=== PATIENT | male | born 1960 | race African-American/Black ===

== ENCOUNTER 2018-01-15 09:17 | Day surgery (SDC) | payer MEDICARE, OTHER, MEDICAID ==
[2018-01-15] MEDS ORDERED: PROPOFOL 20 ML (10:30)
[2018-01-15] MEDS ORDERED: LIDOCAINE 2% (SDV) 5 ML INJ (10:30)
== END 2018-01-15 12:05 | disposition home or self-care (01) ==
LOC: GIL 09:17
DX: Z12.11 Encounter for screening for malignant neoplasm of colon (principal); K64.8 Other hemorrhoids; G80.9 Cerebral palsy, unspecified
CPT/HCPCS: G0121

== ENCOUNTER 2018-02-26 11:51 | Emergency (ER) | payer MEDICARE, OTHER ==
[2018-02-26] MEDS: FLUORESCEIN STRIP LEFT EYE (13:40)
== END 2018-02-26 13:41 | disposition home or self-care (01) ==
LOC: FTE 11:51
DX: S01.112A Laceration without foreign body of left eyelid and periocular area, initial encounter (principal); I10 Essential (primary) hypertension; W22.8XXA Striking against or struck by other objects, initial encounter; Y92.9 Unspecified place or not applicable
CPT/HCPCS: 99282

== ENCOUNTER 2018-03-03 09:51 | Emergency (ER) | payer MEDICARE, OTHER | END 2018-03-03 11:17 | disposition home or self-care (01) | LOC: FTE 09:51 | DX: S05.92XA Unspecified injury of left eye and orbit, initial encounter (principal); I10 Essential (primary) hypertension; W20.8XXA Other cause of strike by thrown, projected or falling object, initial encounter; Y92.9 Unspecified place or not applicable | CPT/HCPCS: 99283 ==

== ENCOUNTER 2018-08-29 09:47 | Emergency (ER) | payer MEDICARE, OTHER ==
[2018-08-29 11:06] LABS: ADD MAN DIFF? NO
[2018-08-29] MEDS: ASPIRIN 325 MG TAB PO (11:08)
[2018-08-29 11:10] LABS: BASOPHILS % 0.2 % (0.0-2.0); EOSINOPHILS % 0.3 % (0.0-7.0); HEMATOCRIT 34.9 % (42.0-52.0); HEMOGLOBIN 11.3 g/dl (14.0-18.0); LYMPHOCYTES # 1.3 10^3/ul (0.8-2.9); LYMPHOCYTES % 11.1 % (15.0-51.0); MEAN CORPUSCULAR HEMOGLOBIN 29.4 pg (29.0-33.0); MEAN CORPUSCULAR HGB CONC 32.4 g/dl (32.0-37.0); MEAN CORPUSCULAR VOLUME 90.6 fl (82.0-101.0); MEAN PLATELET VOLUME 9.3 fl (7.4-10.4); MONOCYTE # 1.2 10^3/ul (0.3-0.9); NEUTROPHIL # 9.3 10^3/ul (1.6-7.5); PLATELET COUNT 283 10^3/UL (140-415); RED BLOOD COUNT 3.85 10^6/ul (4.70-6.10)
[2018-08-29 11:30] LABS: ALANINE AMINOTRANSFERASE 32 IU/L (13-69); ALBUMIN 3.7 g/dl (3.3-4.9); ALKALINE PHOSPHATASE 85 IU/L (42-121); ANION GAP 6 (5-13); ASPARTATE AMINO TRANSFERASE 25 IU/L (15-46); BILIRUBIN,INDIRECT 0.5 mg/dl (0-1.1); BILIRUBIN,TOTAL 0.5 mg/dl (0.2-1.3); BLOOD UREA NITROGEN 20 mg/dl (7-20); CARBON DIOXIDE 31 mmol/L (21-31); CHLORIDE 101 mmol/L (97-110); CREATINE KINASE 145 IU/L (23-200); CREATININE 0.92 mg/dl (0.61-1.24); Estimated GFR > 60 mL/min (>60); GLUCOSE 104 mg/dl (70-220); LIPASE 54 U/L (23-300); POTASSIUM 3.8 mmol/L (3.5-5.1); SODIUM 138 mmol/L (135-144); TOTAL PROTEIN 7.4 g/dl (6.1-8.1)
[2018-08-29 11:37] LABS: INR 1.07; PARTIAL THROMBOPLASTIN TIME 31.5 Sec (23.0-35.0); PT RATIO 1.1
[2018-08-29] MEDS: ALBUTEROL 0.083% (NEB) 2.5 MG/3 ML AMP NEB (11:39)
[2018-08-29] MEDS: IPRATROPIUM (NEB) 0.5 MG/2.5 ML AMP NEB (11:39)
[2018-08-29 11:40] LABS: CK INDEX 0.7
[2018-08-29 11:42] LABS: B-TYPE NATRIURETIC PEPTIDE 58 PG/ML (0-125); TROPONIN-I < 0.012 ng/ml (0.000-0.120)
[2018-08-29 11:45] LABS: CK-MB 0.98 ng/ml (0.0-2.4)
[2018-08-29] MEDS: CEFTRIAXONE 1 GM/50 ML (PMX) 50 ML IVPB (11:48)
[2018-08-29] MEDS: AZITHROMYCIN 500MG/NS (PMX) 250 ML IV (12:41)
== END 2018-08-29 14:08 | disposition home or self-care (01) ==
LOC: E/R 09:47
DX: J18.1 Lobar pneumonia, unspecified organism (principal); I10 Essential (primary) hypertension; R07.9 Chest pain, unspecified
CPT/HCPCS: 71045; 80053; 82550; 82553; 83690; 83880; 84484; 85025; 85610; 85730; 87040; 93005; 94664; 96374; 96375; 99285-25